=== PATIENT | female | born 1985 | race Caucasian/White ===

== ENCOUNTER → 2021-06-05 18:16 | Outpatient (BNVA) | payer BC, MEDICAID, SELFPAY | PROVIDERS: Visit Provider Nurse Practitioner Family | DX: S99.929A Unspecified injury of unspecified foot, initial encounter (principal); X58.XXXA Exposure to other specified factors, initial encounter | CPT/HCPCS: 73630 ==

== ENCOUNTER → 2021-08-03 12:01 | Outpatient (BNVA) | payer OTHER, BC, MEDICAID, SELFPAY | PROVIDERS: Visit Provider Emergency Medicine | DX: S90.02XA Contusion of left ankle, initial encounter (principal); M54.6 Pain in thoracic spine; X58.XXXA Exposure to other specified factors, initial encounter | CPT/HCPCS: 73610 ==

== ENCOUNTER → 2021-09-03 11:33 | Outpatient (BNVA) | payer BC, MEDICAID, SELFPAY | PROVIDERS: Visit Provider Emergency Medicine | DX: F17.200 Nicotine dependence, unspecified, uncomplicated (principal) | CPT/HCPCS: 71046 ==

== ENCOUNTER → 2021-09-06 10:46 | Outpatient (BNVA) | payer BC, MEDICAID, SELFPAY | PROVIDERS: Visit Provider Emergency Medicine | DX: J40 Bronchitis, not specified as acute or chronic (principal); J98.11 Atelectasis | CPT/HCPCS: 71046 ==

== ENCOUNTER 2021-09-18 10:25 | Outpatient (CLI) | payer BC, MEDICAID, SELFPAY ==
--- NOTE | 2021-09-18 10:30 | CT_ITS ---
WS: [id number] CTA OF THE CHEST WITH PULMONARY EMBOLISM PROTOCOL TECHNIQUE: High-resolution contrast enhanced CTA of the chest with coronal and sagittal reformatted i serges with pulmonary embolism protocol. MIP images are also reviewed. CLINICAL INFORMATION: F17.200 - Nicotine dependence, unspecified, uncomplicated COMPARISON: None. DLP: 751.[address] scans at [facility] use at least one of these dose optimization techniques: automated e xposure control; mA and/or kV adjustment per patient size (includes targeted exams where dose is matc hed to clinical indication); or iterative reconstruction. FINDINGS: Proximal main pulmonary arteries are normal. Normal segmental and subsegmental pulmonary arteries. No evidence of pulmonary embolus. Normal caliber thoracic aorta. No mediastinal or hilar lymphadenopathy. No axillary lymphadenopathy. Both lungs are well aerated. No acute pulmonary infiltrates. No focal pneumonia or pleural fluid. Normal thoracic spine. Normal caliber descending thoracic aorta. Adrenal glands are normal. Cholecyst ectomy clips. CT/CT angio chest PE protcl [id number] IMPRESSION: 1. Proximal main pulmonary arteries are normal. No evidence of pulmonary embol us. 2. Lungs are well aerated. No acute pulmonary infiltrates. 3. No other significant findings.
[2021-09-18] MEDS: iohexol 350 mg/mL 100 mL Btl IV (10:54)
== END 2021-09-18 10:26 | disposition home or self-care (01) ==
PROVIDERS: Visit Provider Emergency Medicine
DX: F17.200 Nicotine dependence, unspecified, uncomplicated (principal); J98.19 Other pulmonary collapse
CPT/HCPCS: 71275; Q9967

== ENCOUNTER → 2022-10-03 15:08 | Outpatient (BNVA) | payer MEDICAID, SELFPAY | PROVIDERS: Visit Provider Emergency Medicine | DX: R50.9 Fever, unspecified (principal); J98.8 Other specified respiratory disorders; B97.89 Other viral agents as the cause of diseases classified elsewhere | CPT/HCPCS: 87400; 87426 ==

== ENCOUNTER → 2022-11-20 10:07 | Outpatient (BNVA) | payer MEDICAID, SELFPAY | PROVIDERS: Visit Provider Emergency Medicine | DX: M77.41 Metatarsalgia, right foot (principal); M77.42 Metatarsalgia, left foot; M25.561 Pain in right knee; R20.8 Other disturbances of skin sensation | CPT/HCPCS: 73562; 73630 ==

== ENCOUNTER 2022-12-25 11:44 | Outpatient (CLI) | payer MEDICAID, SELFPAY | END 2022-12-25 11:45 | disposition home or self-care (01) | LOC: SPT 11:45 | PROVIDERS: Visit Provider Podiatrist Foot & Ankle Surgery | DX: Z46.89 Encounter for fitting and adjustment of other specified devices (principal); M76.72 Peroneal tendinitis, left leg | CPT/HCPCS: 97760; L4361 ==

== ENCOUNTER → 2023-11-24 10:41 | Outpatient (BNVA) | payer BC, MEDICAID, SELFPAY | PROVIDERS: Visit Provider Emergency Medicine | DX: B34.9 Viral infection, unspecified (principal) | CPT/HCPCS: 87400; 87426 ==

== ENCOUNTER → 2024-04-06 14:22 | Outpatient (BNVA) | payer BC, MEDICAID, SELFPAY | PROVIDERS: Visit Provider Podiatrist Foot & Ankle Surgery | DX: L85.1 Acquired keratosis [keratoderma] palmaris et plantaris; F17.200 Nicotine dependence, unspecified, uncomplicated; S90.01XA Contusion of right ankle, initial encounter; W22.8XXA Striking against or struck by other objects, initial encounter | CPT/HCPCS: 73610 ==

== ENCOUNTER → 2025-03-29 09:46 | Outpatient (BNVA) | payer BC, MEDICAID, SELFPAY | PROVIDERS: Visit Provider Nurse Practitioner | DX: K58.9 Irritable bowel syndrome, unspecified (principal); Z85.41 Personal history of malignant neoplasm of cervix uteri; Z86.0100 Personal history of colon polyps, unspecified | CPT/HCPCS: 80053; 80061; 83036; 84443; 85025 ==

== ENCOUNTER 2025-05-03 09:44 | Day surgery (SDC) | payer MEDICAID, SELFPAY ==
[2025-05-03 10:05] VITALS: BP 109/65; PULSE 63; RESP 17; TEMP 36.7; O2SAT 98; BMI 22.1
[2025-05-03] MEDS: sodium chloride 0.9% 1,000 ML 15 ML IV (10:22)
--- NOTE | 2025-05-03 10:28 | P.ANESASSM_ITS ---
Pre-Anesthetic Assessment Height/Weight: Height 1.7 m Weight 63.957 kg Temp Pulse Resp BP Pulse Ox O2 Del Method 98.0 F 63 17 109/65 98 Room Air 05/03/25 10:05 05/03/25 10:05 05/03/25 10:05 05/03/25 10:05 05/03/25 10:05 05/03/25 10:05 Preop Diagnosis: Screen, hx. polyps Operation Date: 05/03/25 11:15 Proposed Procedures p Colonoscopy 65358 G0105 Z12.11 Z86.0100(Not Applicable) - Alexis Gomez MD Familial anesthetic complications: none Was Beta Ivanna taken within 24 hours: N/A Was Clonidine taken within 24 hours: N/A Last intake: Intake Last Liquid Date 05/02/25 Last Liquid Time 23:00 Last Solid Date 05/01/25 Last Solid Time 18:00 Social Tobacco 1.5 pack(s) per day 20 pack years Exam alert, oriented x 3, clear to auscultation bilaterally and regular rate & rhythm Airway Cervical ROM: within normal limits Comments: Comments: endentulous Pulmonary Chronic Obstructive Pulmonary Disease CV/HEM None reported None reported Hepatic None reported GI None reported Metabolic None reported Musc/skel None reported Neuropsych None reported Anesthetic Plan ASA status: 3 Anesthesia: MAC Risk of > 500 ml blood loss (7ml/kg in children): No Medications/Allergies Home Medications ?Medication ?Instructions ?Recorded ?Confirmed ?Last Taken ?Type diphenhydramine HCl 25 mg capsule 25 mg PO TID PRN Itc rima 04/26/25 05/03/25 04/27/25 History (Benadryl) Allergies Allergy/AdvReac Type Severity Reaction Status Date / Time Latex, Natural Rubber Allergy Severe ALGY-Bliste Verified 05/03/25 10:00 r naproxen Allergy Severe ALGY-Anaphy Verified 05/03/25 10:00 laxis latex Allergy blister Verified 05/03/25 10:00 tioconazole (From Monistat 1 AdvReac Intermediate blisters Verified 05/03/25 10:00 (tioconazole)) Current Medications Generic Name Dose Route Start Last Admin Trade Name Freq PRN Reason Stop Dose Admin Sodium Chloride 1,000 mls @ 15 mls/hr 05/03/25 09:54 05/03/25 10:22 Sodium Chloride 0.9% IV 05/04/25 09:53 15 mls/hr .Q24H PRN Administration COLONOSCOPY FLUIDS PFSH Anesthesia Medical History Right middle lobe syndrome Smoking Social History Smoking and tobacco/nicotine status: current every day tobacco/nicotine user
--- NOTE | 2025-05-03 10:31 | W.PM.OPSUD ---
Surgery/Procedure H&P Update DATE OF PROCEDURE: May 03, 2025 DATE H&P PERFORMED: 04/15/25 H&P UPDATE INFORMATION: I have reviewed H&P completed within last 30 days, I have examined patient prior to procedure and No changes to prior documentation PREOP DIAGNOSIS: Screen, hx. polyps PLANNED PROCEDURE: Operation Date: 05/03/25 11:15 Proposed Procedures p Colonoscopy 45507 G0105 Z12.11 Z86.0100(Not Applicable) - Alexis Gomez MD
[2025-05-03 10:54] VITALS: BP 90/56; PULSE 63; RESP 16; TEMP 36.9; O2SAT 93
[2025-05-03 11:05] VITALS: BP 104/63; PULSE 58; RESP 18; O2SAT 96
--- NOTE | 2025-05-03 11:40 | ANE.PACU2 ---
Inpatient post-anesthesia follow up: Airway intact: Yes Vital signs: Temperature 98.4 F Pulse Rate 58 Respiratory Rate 18 Blood Pressure 104/63 Pulse Oximetry 96 Oxygen Delivery Me thod Room Air Oxygen Flow Rate 2 Fraction of Inspir ed Oxygen Hydration adequate: Yes Nausea and vomiting: No Pain level: 1 Mental status: Baseline
== END 2025-05-03 11:40 | disposition home or self-care (01) ==
PROVIDERS: PCP Nurse Practitioner; Visit Provider Student in an Organized Health Care Education/Training Program
PROC: 0DJD8ZZ Inspection of Lower Intestinal Tract, Via Natural or Artificial Opening Endoscopic (ICD-10-PCS; CPT 45378; principal; 2025-05-03 11:15)
DX: Z12.11 Encounter for screening for malignant neoplasm of colon (principal); J44.9 Chronic obstructive pulmonary disease, unspecified; F17.210 Nicotine dependence, cigarettes, uncomplicated; Z88.8 Allergy status to other drugs, medicaments and biological substances; Z91.040 Latex allergy status; Z86.0100 Personal history of colon polyps, unspecified
CPT/HCPCS: 45378; J2704; J3010; J7030

== ENCOUNTER → 2025-05-20 08:44 | Outpatient (BNVA) | payer MEDICAID, SELFPAY | PROVIDERS: PCP Nurse Practitioner; Visit Provider Nurse Practitioner | DX: R25.2 Cramp and spasm (principal) | CPT/HCPCS: 80053; 83735 ==

== ENCOUNTER → 2025-06-08 08:51 | Outpatient (BNVA) | payer MEDICAID, SELFPAY | PROVIDERS: PCP Nurse Practitioner; Visit Provider Specialist | DX: G56.03 Carpal tunnel syndrome, bilateral upper limbs (principal) | CPT/HCPCS: 73110 ==

== ENCOUNTER → 2025-07-22 11:23 | Outpatient (BNVA) | payer MEDICAID, SELFPAY | PROVIDERS: PCP Nurse Practitioner; Visit Provider Nurse Practitioner | DX: R30.9 Painful micturition, unspecified (principal); N39.0 Urinary tract infection, site not specified | CPT/HCPCS: 81000; 87086 ==

== ENCOUNTER → 2025-08-11 09:40 | Outpatient (BNVA) | payer MEDICAID, SELFPAY | PROVIDERS: PCP Nurse Practitioner; Visit Provider Nurse Practitioner | DX: R05.9 Cough, unspecified (principal); J02.9 Acute pharyngitis, unspecified | CPT/HCPCS: 87071; 87400; 87426; 87880 ==